=== PATIENT | male | born 1965 ===

== ENCOUNTER 2018-06-11 18:42 | Emergency (ER) | payer OTHER ==
[2018-06-11 18:42] VITALS: BMI 28.1
[2018-06-11] MEDS ORDERED: Sodium Chloride 0.9% 1,000 ML IV STA (19:14)
--- NOTE | 2018-06-11 19:19 | C.PDOC ---
History Of Present Illness 53 y/o M c PMHx DM p/w general weakness, nausea and 1 episode of vomiting today. Patient underwent ambulatory shoulder surgery today and afterwards, went to [facility] to get a prescription but upon arriving, felt this way and took ambulance to this hospital. Denies fever, chills, chest pain, dyspnea, abdominal pain. Time Seen by Provider: 06/11/18 19:06 Chief Complaint (Nursing): GI Problem Past Medical History Vital Signs: Last Vital Signs Temp 98 F 06/11/18 18:45 Pulse 86 06/11/18 18:45 Resp 18 06/11/18 18:45 BP 114/83 06/11/18 18:45 Pulse Ox 98 06/11/18 18:45 Family History: States: No Known Family Hx - Social History Hx Alcohol Use: No Hx Substance Use: No Review Of Systems Except As Marked, All Systems Reviewed And Found Negative. Constitutional: Negative for: Fever Cardiovascular: Negative for: Chest Pain Physical Exam - Physical Exam Appears: No Acute Distress Skin: Normal Color Head: Atraumatic, Normacephalic Eye(s): bilateral: EOMI Oral Mucosa: Moist Neck: Supple Cardiovascular: Rhythm Regular Respiratory: Normal Breath Sounds Gastrointestinal/Abdominal: Soft, No Tenderness Extremity: Other (R shoulder bandage in place; c/d/i) Pulses: Left Radial: Normal, Right Radial: Normal Neurological/Psych: Normal Speech, Normal Cognition ED Course And Treatment - Laboratory Results Result Diagrams: 06/11/18 19:23 06/11/18 19:23 O2 Sat by Pulse Oximetry: 98 Medical Decision Making Medical Decision Making: Zofran, IVF, pain control. Observe in ED, labs. Called Dr. Solorzano, states prescription was Percocet. Will discharge, feels better, instructed to get prescription and take Zofran as needed. Disposition - Disposition Disposition: HOME/ ROUTINE Disposition Time: 21:08 Condition: STABLE Prescriptions: Ondansetron ODT [Zofran ODT] 4 mg PO Q8 #12 odt Instructions: General Anesthesia Forms: [facility] ([place]) Print Language: BENINESE - Clinical Impression Clinical Impression: Vomiting
[2018-06-11 19:26] LABS: BASO % 0.2 % (0.0-2.0); EOS # 0.2 K/uL (0.0-0.7); EOS % 2.1 % (0.0-4.0); HEMOGLOBIN 12.2 g/dL (12.0-18.0); LYMPH # 1.6 K/uL (1.0-4.3); LYMPH % 16.6 % (20.0-40.0); MEAN CELL VOLUME 87.3 fL (80.0-94.0); MEAN CORPUSCULAR HEMOGLOBIN 28.5 pg (27.0-31.0); MEAN CORPUSCULAR HGB CONC 32.6 g/dL (33.0-37.0); MONO # 0.8 K/uL (0.0-0.8); MONO % 8.1 % (0.0-10.0); NEUT # 6.9 K/uL (1.8-7.0); RBC 4.29 Mil/uL (4.40-5.90); WHITE BLOOD COUNT 9.4 K/uL (4.8-10.8)
[2018-06-11 19:30] VITALS: RESP 18; TEMP 98; O2SAT 98
[2018-06-11 19:43] LABS: ALB/GLOB RATIO 1.1 (1.0-2.1); ALBUMIN 3.8 g/dL (3.5-5.0); ALT/SGPT 23 U/L (21-72); AST/SGOT 30 U/L (17-59); BLOOD UREA NITROGEN 9 mg/dL (9-20); CALCIUM 9.1 mg/dl (8.6-10.4); GFR NON-AFRICAN AMERICAN > 60; LIPASE 34 U/L (23-300)
[2018-06-11 21:22] VITALS: BP 136/79; PULSE 78
== END 2018-06-11 21:21 | disposition home or self-care (01) ==
LOC: C.ER 18:42
DX: R11.2 Nausea with vomiting, unspecified (principal)
CPT/HCPCS: 80053; 82948; 83690; 85025; 96374; 96375; 96376; 99284; J2270; J2405; J7030